=== PATIENT | male | born 1985 | race Two or more races ===

== ENCOUNTER 2018-05-01 16:07 | Outpatient (CLI) | payer OTHER ==
[~2018-05-01] VITALS: Ht 188 cm; Wt 90.7 kg
== END 2018-05-01 16:20 | disposition home or self-care (01) ==
LOC: OFIC 805 16:07
DX: H91.8X1 Other specified hearing loss, right ear (principal); H74.8X1 Other specified disorders of right middle ear and mastoid; H69.81 Other specified disorders of Eustachian tube, right ear

== ENCOUNTER → 2018-05-05 | Day surgery (SDC) | payer OTHER | END | disposition home or self-care (01) | LOC: CIR.AMB 09:15 | DX: H69.83 Other specified disorders of Eustachian tube, bilateral (principal) ==

== ENCOUNTER 2018-06-05 16:29 | Outpatient (CLI) | payer OTHER ==
[~2018-06-05] VITALS: Ht 182.9 cm; Wt 90.7 kg
== END 2018-06-05 16:45 | disposition home or self-care (01) ==
LOC: OFIC 805 16:29
DX: H91.8X3 Other specified hearing loss, bilateral (principal); H74.8X1 Other specified disorders of right middle ear and mastoid; H69.83 Other specified disorders of Eustachian tube, bilateral; H73.92 Unspecified disorder of tympanic membrane, left ear

== ENCOUNTER 2019-09-11 08:16 | Outpatient (CLI) | payer OTHER | END 2019-09-11 12:47 | disposition home or self-care (01) | LOC: OFIC 805 08:16 | PROVIDERS: ATTEND Otolaryngology | DX: H69.91 Unspecified Eustachian tube disorder, right ear (principal); H73.892 Other specified disorders of tympanic membrane, left ear; H91.8X3 Other specified hearing loss, bilateral; H74.8X1 Other specified disorders of right middle ear and mastoid ==